=== PATIENT | female | born 2000 | race Caucasian/White ===

== ENCOUNTER → 2018-06-10 | Outpatient (CLI) | payer OTHER | END | disposition home or self-care (01) | LOC: LABWHC1 12:22 | PROVIDERS: ATTEND Obstetrics & Gynecology | DX: Z34.02 Encounter for supervision of normal first pregnancy, second trimester (principal); Z3A.00 Weeks of gestation of pregnancy not specified | CPT/HCPCS: 86850 ==

== ENCOUNTER 2018-10-12 17:07 | Outpatient (CLI) | payer OTHER ==
[2018-10-12] MEDS ORDERED: ONDANSETRON 4 MG/2 ML VIAL IVP STA (17:37)
[2018-10-12] MEDS: LACTATED RINGERS 1,000 ML IV SCH ×2 (17:40→18:08)
[2018-10-12 19:03] VITALS: BP 128/75; PULSE 107; RESP 18; TEMP 97.9
--- NOTE | 2018-11-05 11:49 | P.MSEPDOC ---
Presenting Problems - Arrival Data Date of Arrival on Unit: 10/12/18 Time of Arrival on Unit: 17:07 Mode of Transport: Ambulatory - Complaint OB-Reason for Admission/Chief Complaint: Possible Onset of Labor Comment: Pt states has had the back and vaginal pain since wednesday and got worse today. states she thinks she could be having contractions denies abdominal pain. Medical History - Information : 1 Para: 0 Term: 0 : 0 Abortions: Spontaneous or Elective: 0 Number of Living Children: 0 - Gestational Age Gestational Age by JENNIFER (wks/days): 38 Weeks and 2 Days Review of Systems - Review of Systems Constitutional: No problems Breast: No problems ENT: No problems Cardiovascular: No problems Respiratory: No problems Gastrointestinal: No problems Genitourinary: No problems Musculoskeletal: No problems Neurological: No problems Skin: No problems Comment: nausea/vomiting x2 days. Vital Signs - Temperature Temperature: 97.9 F Temperature Source: Temporal Artery Scan - Pulse Right Pulse Oximetery Pulse Rate: 107 Pulse Assessment Method: Pulse Oximetry - Respirations Respiratory Rate: 18 Oxygen Delivery Method: Room Air O2 Sat by Pulse Oximetry: 99 - Blood Pressure Right Arm Blood Pressure: 128/75 Blood Pressure Mean: 92 Blood Pressure Source: Automatic Cuff Medical Screen Scoring (Pre) - Cervical Exam Dilation: 1-3 cm = 1 Membranes: Intact - Uterine Contractions Frequency: > or = 36 weeks =2 Duration: > 40 seconds = 2 Intensity: N/A - Maternal Vital Signs Maternal Temperature: N/A Maternal Blood Pressure: N/A Signs of Preeclampsia: N/A Maternal Respirations: N/A - Pain Assessment Pain Location and Character: Perineal Pain Scale Used: Numeric (1 - 10) Pain Intensity: 7 Pain Management Goal: 2 Pain Description: *Acute, Pressure Pain Radiation Location: none Pain Frequency: Intermittent Pain Duration: 2 Pain Duration Units: Days Pain Behavior: Vocalization Effects of Pain: none Pain Aggravating Factors: Changing Position Pharmacological Interventions: PRN Medication Non-Pharmacological Interventions: Reduce Environmental Stimuli - Maternal Trauma Maternal Trauma: N/A - Assessment Baseline FHR: 125 Heart Rate - NICHD Category: Category I (Normal) = 0 NST: Reactive Position: N/A Station: N/A - Total Score Total Score (Pre): 5 - Level of Risk Level of Risk: Low (0-5) Physician Notification (Pre) - Physician Notified Physician Notified Date: 10/12/18 Physician Notified Time: 17:26 Physician/Practitioner Notifed:: Dr Collins Spoke With: Dr Collins New Order Received: Yes - Notification Comment Comment: pt here for rule out labor, also has been unable to keep fluids down x2 days. pt hydrated with IV fluids and given one dose of zofran, cervical exam no change after one hour. Disposition - Disposition OB Disposition: Discharge to home Discharge Date: 10/12/18 Discharge Time: 18:45 I agree with the RN Medical Screening Exam: Yes Risk & Benefit of care provided described in d/c instruction: Yes Diagnosis: FALSE LABOR AT OR AFTER 37 COMPLETED WEEKS OF GESTATION
== END 2018-10-12 18:40 | disposition home or self-care (01) ==
LOC: FBPOP 17:07
PROVIDERS: ATTEND Obstetrics & Gynecology
DX: O47.1 False labor at or after 37 completed weeks of gestation (principal); Z3A.38 38 weeks gestation of pregnancy
CPT/HCPCS: 59025; 99214; 96361; 96374; J2405

== ENCOUNTER 2018-10-22 19:10 | Outpatient (CLI) | payer OTHER ==
[2018-10-22 19:29] VITALS: BP 111/64; PULSE 87; RESP 16; TEMP 98.2
--- NOTE | 2018-10-22 21:01 | US ---
EXAMINATION TYPE: US OB >= 14 wk fetus DATE OF EXAM: 10/22/2018 COMPARISON: None CLINICAL HISTORY: decreased movement, known third trimester gestation. TECHNIQUE: Transabdominal GESTATIONAL AGE / DATING Physician Established: (39 weeks/5 days) EDC: 10/24/2018 Dates by LMP: (39 weeks/5 days) EDC: 10/24/2018 Dates by First Scan: No previous Dates by Current Scan: (38 weeks/1 days) EDC: 11/04/2018 SURVEY IUP: Single PLACENTA: Anterior PREVIA: No Previa NEGRO: 17.6 cm Normal CERVICAL LENGTH (transabdominal: norm > 3.0cm): 3.1 cm BIOMETRY PRESENTATION: Vertex LIE: Longitudinal BPD: 9.4 cm 38 weeks / 3 days HC: 33.8 cm 38 weeks / 5 days AC: 36.1 cm 40 weeks / 0 days FL: 7.3 cm 37 weeks / 4 days ESTIMATED WEIGHT IN GRAMS: 3695 grams ESTIMATED WEIGHT IN LBS/OZ: 8 lbs. 2 oz. WEIGHT PERCENTAGE BASED ON ESTABLISHED DATES: 61.1% HC/AC: 0.94 Normal FL/AC: 20.36 Normal HEART RATE: 130 bpm RHYTHM: Normal Viable IUP with an JENNIFER of 11/04/2018 by this exam. NEGRO is 17.6 cm. Probable placental lakes incidenta lly visualized, Single live intrauterine gestation is confirmed. Normal cephalad presentation to fetus is present. No ultrasound evidence for placenta previa. Amniotic fluid index is calculated upper limits of normal. biometry measurements are congruent and felt within normal limits as detailed above. IMPRESSION: No ultrasound evidence for significant complication.
--- NOTE | 2018-10-23 12:46 | P.MSEPDOC ---
Presenting Problems - Arrival Data Date of Arrival on Unit: 10/22/18 Time of Arrival on Unit: 19:10 Mode of Transport: Portable - Complaint OB-Reason for Admission/Chief Complaint: Decreased Movement Medical History - Information : 1 Para: 0 Term: 0 : 0 Abortions: Spontaneous or Elective: 0 Number of Living Children: 0 - Gestational Age Gestational Age by JENNIFER (wks/days): 39 Weeks and 5 Days - History Complications: Smoker Review of Systems - Review of Systems Constitutional: No problems Breast: No problems ENT: No problems Cardiovascular: No problems Respiratory: No problems Gastrointestinal: No problems Genitourinary: No problems Musculoskeletal: No problems Neurological: No problems Skin: No problems Vital Signs - Temperature Temperature: 98.2 F Temperature Source: Temporal Artery Scan - Pulse Right Brachial Pulse Rate: 87 Pulse Assessment Method: Automatic Cuff - Respirations Respiratory Rate: 16 Oxygen Delivery Method: Room Air O2 Sat by Pulse Oximetry: 98 - Blood Pressure Right Arm Blood Pressure: 111/64 Blood Pressure Mean: 79 Blood Pressure Source: Automatic Cuff Medical Screen Scoring (Pre) - Cervical Exam Dilation: Exam Deferred Effacement: Exam Deferred Membranes: Intact - Uterine Contractions Frequency: > 5 minutes apart = 1 Duration: > 40 seconds = 2 Intensity: N/A - Maternal Vital Signs Maternal Temperature: N/A Maternal Blood Pressure: N/A Signs of Preeclampsia: N/A Maternal Respirations: N/A - Maternal Trauma Maternal Trauma: N/A - Assessment Baseline FHR: 125 Heart Rate - NICHD Category: Category I (Normal) = 0 NST: Reactive Position: N/A Station: N/A - Total Score Total Score (Pre): 3 - Level of Risk Level of Risk: Low (0-5) Medical Screen Scoring (Post) - Cervical Exam Dilation: 1-3 cm = 1 Membranes: Intact - Uterine Contractions Frequency: > 5 minutes apart = 1 Duration: > 40 seconds = 2 - Assessment Heart Rate: 125 Heart Rate - NICHD Category: Category I (Normal) = 0 NST: Reactive Position: N/A - Total Score Total Score (Post): 4 Physician Notification (Post) - Physician Notified Physician Notified Date: 10/22/18 Physician Notified Time: 21:00 Spoke With: Hao New Order Received: Yes - Notification Comment Comment: jostin wnl, discharge with instruction to continue kick counts Disposition - Disposition OB Disposition: Discharge to home, Written follow up instructions reviewed Discharge Date: 10/22/18 Discharge Time: 21:05 I agree with the RN Medical Screening Exam: Yes Risk & Benefit of care provided described in d/c instruction: Yes Diagnosis: DECREASED MOVEMENTS, THIRD TRIMESTER, UNSP
== END 2018-10-22 21:05 | disposition home or self-care (01) ==
LOC: FBPOP 19:10
PROVIDERS: ATTEND Obstetrics & Gynecology
DX: O36.8130 Decreased fetal movements, third trimester, not applicable or unspecified (principal); Z3A.39 39 weeks gestation of pregnancy
CPT/HCPCS: 59025; 76805; 99213

== ENCOUNTER 2018-10-27 06:00 | Inpatient (IN) | payer OTHER ==
--- NOTE | 2018-10-26 20:30 | P.HPOB ---
History of Present Illness H&P Date: 10/26/18 Chief Complaint: Induction of labor, postdates This is a 18-year-old female 1 para 0 with an estimated date of confinement of 10/24/2018, estimated gestational age of 40-3/7 weeks, who presents to labor and delivery for induction of labor secondary to postdates. She admits to good movement currently. She did have an episode of decreased movement and amniotic fluid index was noted to be 18. Nonstress tests were reactive. She currently is feeling irregular contractions and pressure. She denies any rupture of membranes. course has been essentially uncomplicated up until this point. labs: GC/chlamydia-negative Hepatitis B surface antigen-negative RPR-nonreactive HIV-nonreactive Blood type-A- Antibody screen-negative Hemoglobin-12.7 Random glucose-89 One hour Glucola-105 Group B streptococcus-positive Obstetrical history: . Gynecologic history: No history of sexually transmitted diseases. Review of Systems Constitutional: Denies chills, Denies fever Eyes: denies blurred vision, denies pain Ears, nose, mouth and throat: Denies headache, Denies sore throat Cardiovascular: Denies chest pain, Denies shortness of breath Respiratory: Denies cough Gastrointestinal: Reports abdominal pain (Irregular contractions), Denies diarrhea, Denies nausea, Denies vomiting Genitourinary: Reports pelvic pain, Reports , Denies dysuria, Denies hematuria Musculoskeletal: Reports low back pain, Denies myalgias Integumentary: Denies pruritus, Denies rash Neurological: Denies numbness, Denies weakness Psychiatric: Denies anxiety, Denies depression Past Medical History Past Medical History: GERD/Reflux History of Any Multi-Drug Resistant Organisms: None Reported Past Surgical History: No Surgical Hx Reported Past Psychological History: No Psychological Hx Reported Smoking Status: Current every day smoker Past Alcohol Use History: None Reported Past Drug Use History: None Reported Medications and Allergies Home Medications Medication Instructions Recorded Confirmed Type No Known Home Medications 10/22/18 10/22/18 History Allergies Allergy/AdvReac Type Severity Reaction Status Date / Time aspartame Allergy Unknown Verified 10/22/18 19:20 bee venom protein (honey bee) Allergy Swelling Verified 10/22/18 19:20 Exam Osteopathic Statement: *. No significant issues noted on an osteopathic structural exam other than those noted in the History and Physical/Consult. HEENT: Within normal limits Heart: Regular rate and rhythm Lungs: Clear to auscultation bilaterally Abdomen: Cervix: 1 cm/60%/-1 station heart tones: 140s by Doppler Extremities: Negative Homans Assessment and Plan (1) 40 weeks gestation of Status: Acute Code(s): Z3A.40 - 40 WEEKS GESTATION OF SNOMED Code( s): 97629070 (2) Group B Streptococcus carrier, +RV culture, currently Status: Acute Code(s): O99.820 - STREPTOCOCCUS B CARRIER STATE COMPLICATING SNOMED Code(s): 3050200847320 Plan: Proceed with oxytocin induction of labor. Antibiotic prophylaxis for group B streptococcus. Expectant management.
[2018-10-27] MEDS ORDERED: OXYTOCIN 20 UNITS/1000 ML NS 1,000 ML IV SCH (06:24)
[2018-10-27] MEDS ORDERED: LIDOCAINE 1% INJ 10MG/ML (20 ML MDV) SQ PRN (06:24)
[2018-10-27] MEDS ORDERED: OXYTOCIN 10 UNIT/ML 1 ML VIAL IM PRN (06:24)
[2018-10-27] MEDS ORDERED: METHYLERGONOVINE 0.2 MG/ML 1 ML AMP IM PRN (06:24)
[2018-10-27] MEDS ORDERED: CARBOPROST TROMETHAMINE 250 MCG/ML 1 ML AMP IM PRN (06:24)
[2018-10-27] MEDS ORDERED: TERBUTALINE 1 MG/ML VIAL SQ PRN (06:24)
[2018-10-27] MEDS: LACTATED RINGERS 1,000 ML IV SCH ×2 (06:25→14:35)
[2018-10-27] MEDS: AMPICILLIN 1,000 MG in SODIUM CHLORIDE 0.9% 50 ML IVPB SCH ×4 (06:34→18:35)
[2018-10-27 06:48] LABS: Basophils % (A) 0 %; Eosinophils # (A) 0.1 k/uL (0-0.7); Eosinophils % (A) 0 %; HCT 34.4 % (34.0-46.0); HGB 11.4 gm/dL (11.4-16.0); Lymphocytes # (A) 2.2 k/uL (1.0-4.8); Lymphocytes % (A) 19 %; MCH 29.5 pg (25.0-35.0); MCV 89.2 fL (80.0-100.0); Mean Platelet Volume 7.3; Monocytes # (A) 0.5 k/uL (0-1.0); Monocytes % (A) 4 %; Neutrophils # (A) 8.5 k/uL (1.3-7.7); Neutrophils % (A) 74 %; Platelet Count 240 k/uL (150-450); RBC 3.86 m/uL (3.80-5.40); RDW 12.9 % (11.5-15.5); WBC 11.4 k/uL (4.0-11.0)
[2018-10-27 08:36] VITALS: BMI 25.7
[2018-10-27] MEDS: BUTORPHANOL 1 MG/ML 1 ML VIAL IV PRN ×3 (14:28→19:42)
[2018-10-27] MEDS ORDERED: CITRIC ACID-SODIUM CITRATE 15 ML CUP PO ONE (21:23)
[2018-10-27] MEDS ORDERED: LACTATED RINGERS 1,000 ML IV ONE (21:23)
[2018-10-27] MEDS ORDERED: ceFAZolin IN SWFI 2 GM/20 ML SYRINGE IVP ONE (21:23)
[2018-10-27] MEDS ORDERED: MORPHINE SULFATE (PF) 0.3 MG/0.3 ML SYR ONE (21:54)
[2018-10-27] MEDS ORDERED: NALBUPHINE 10 MG/ML VIAL (10ML MDV) ONE (21:54)
[2018-10-27] MEDS ORDERED: DEXAMETHASONE SOD PHOS (MDV) 100 MG/10 ML VIAL ONE (21:54)
[2018-10-27] MEDS ORDERED: ONDANSETRON 4 MG/2 ML VIAL ONE (21:54)
[2018-10-27] MEDS ORDERED: OXYTOCIN 10 UNIT/ML 1 ML VIAL ONE (21:54)
[2018-10-27] MEDS ORDERED: NALOXONE 0.4 MG/ML 1 ML VIAL IV PRN (22:17)
[2018-10-27] MEDS ORDERED: MORPHINE SULFATE 2 MG/ML SYRINGE IVP PRN (22:17)
[2018-10-27] MEDS ORDERED: ONDANSETRON 4 MG/2 ML VIAL IVP PRN (22:17)
[2018-10-27] MEDS ORDERED: diphenhydrAMINE 50 MG/ML 1 ML VIAL IVP PRN (22:17)
--- NOTE | 2018-10-27 22:42 | P.OP ---
Date of Procedure: 10/27/18 Preoperative Diagnosis: 1. Intrauterine at 40-3/7 weeks. 2. Failure to progress. Postoperative Diagnosis: Same Procedure(s) Performed: Primary low transverse section Anesthesia: spinal (Duramorph) Surgeon: Shagufta Bui Education Trainer #1: Micheal Cummins Estimated Blood Loss (ml): 300 Pathology: other (Placenta) Condition: stable Disposition: floor Indications for Procedure: This is a 18-year-old female 1 para 0 at 40-3/7 weeks who presented to labor and delivery for induction of labor. She underwent oxytocin induction of labor and artificial rupture membranes with clear fluid noted. She did receive several doses of Stadol while in labor. She reached a maximum dilation of 3 cm and did not make slubber frame changer at least 4 hours despite adequate contractions. At this point she was exhausted and requested section. I have discussed the risks, benefits, and alternative therapies for the above- mentioned procedure and for both sedation/anesthesia as well as necessary blood products administration, if indicated, as they pertain to this patient. The patient has indicated her understanding and acceptance of the risks and procedures discussed. Operative Findings: A viable female infant was noted in the vertex presentation with scores of 9 at 1 minute and 9 at 5 minutes and weight of 6 lbs. 9 oz. Nuchal cord 2 was noted and a small amount of caput was also noted. Normal uterus tubes and ovaries are noted. Description of Procedure: The patient is taken to the operating room where she is placed in the dorsal supine position with leftward tilt after spinal Duramorph anesthesia is given. She is prepped and draped in the normal sterile fashion. Skin was tested and found to be adequately anesthetized. A Pfannenstiel skin incision was made with a scalpel. A second knife was used to carry the incision down to the underlying layer of fascia. The fascia was nicked in the midline with a scalpel and then extended laterally bilaterally with Jackson scissors. The anterior lip of the fascia was grasped with 2 Alexa clamps and then dissected off the underlying rectus muscle in the midline with Jackson scissors. The inferior aspect of the fascial incision was grasped with 2 Alexa clamps and dissected off the underlying rectus muscle and the midline with Jackson scissors. Next the peritoneum layer was tented up with 2 hemostats and then entered sharply with the scalpel. The incision is extended superiorly and inferiorly with Metzenbaum scissors. Next a DeLee retractor is placed. The vesicouterine peritoneum is entered sharply with Metzenbaum scissors and extended laterally bilaterally with Metzenbaum scissors and then the bladder flap is pushed inferiorly. The lower uterine segment is incised in transverse fashion with the scalpel and then bluntly entered with a hemostat. Clear fluid is noted. The incision was then extended laterally bilaterally with 2 fingers. Next the infant's head is delivered through the incision. Nose and mouth are bulb suctioned. The remainder of the is easily delivered and placed on mother 's abdomen. Cord is clamped and cut. is taken to warmer by nursing staff. Uterine fundus is gently massaged and placenta is delivered manually. Uterus is exteriorized and cleared of all clots and debris. Uterine incision is closed with 0 Vicryl suture in a running locked fashion. A second layer of 0 Vicryl suture is used in a running fashion for hemostasis. Once adequate hemostasis as assured, the vesicouterine peritoneum is reapproximated with 2-0 Vicryl suture in a running fashion. Posterior cul-de-sac is suctioned of all clots and debris. Uterus is returned to the abdomen. Incision is noted to be hemostatic. Peritoneal layer is closed with 0 Vicryl suture in a running fashion. Muscle layer is reapproximated with 0 Vicryl suture in interrupted fashion. Fascia layer is then closed with 0 PDS suture with 2 sutures meeting in the midline and the knots buried in either side and in the midline. The subcutaneous tissue was then closed with 2-0 Vicryl suture. Skin layer was then closed with marci. All sponge and needle counts are correct. The patient is taken to recovery room in stable condition.
[2018-10-28] MEDS ORDERED: diphenhydrAMINE 50 MG CAP PO PRN (00:23)
[2018-10-28] MEDS ORDERED: HYDROCORTISONE 2.5% RECTAL CREAM 30 GM TUBE RECTAL PRN (00:23)
[2018-10-28] MEDS ORDERED: SIMETHICONE 80 MG CHEWABLE PO PRN (00:23)
[2018-10-28] MEDS ORDERED: METOCLOPRAMIDE 5 MG/ML 2 ML VIAL IVP PRN (00:23)
[2018-10-28] MEDS ORDERED: ZOLPIDEM 5 MG TAB PO PRN (00:23)
[2018-10-28] MEDS ORDERED: HYDROcodone/APAP 7.5-325MG 1 EACH TAB PO PRN (00:23)
[2018-10-28] MEDS ORDERED: IBUPROFEN 600 MG TAB PO PRN (00:23)
[2018-10-28] MEDS ORDERED: diphenhydrAMINE 50 MG/ML 1 ML VIAL IVP PRN ×2 (00:23)
[2018-10-28] MEDS ORDERED: HYDROcodone/APAP 5-325MG 1 EACH TAB PO PRN (00:23)
[2018-10-28] MEDS ORDERED: WITCH HAZEL 1 EACH MED..PAD TOPICAL PRN (00:23)
[2018-10-28] MEDS ORDERED: OXYTOCIN 20 UNITS/1000 ML NS 1,000 ML IV SCH (00:23)
[2018-10-28] MEDS ORDERED: LANOLIN CREAM 5 GM TUBE TOPICAL PRN (00:23)
[2018-10-28] MEDS ORDERED: ACETAMINOPHEN TAB 325 MG TAB PO PRN (00:23)
[2018-10-28] MEDS ORDERED: diphenhydrAMINE 25 MG CAP PO PRN (00:23)
[2018-10-28] MEDS: SENNOSIDES-DOCUSATE SODIUM 1 EACH TAB PO SCH ×2 (03:49→21:10)
--- NOTE | 2018-10-28 06:39 | P.PN ---
Progress Note - Text Progress Note Date: 10/28/18 Status post . Post-op day #1. Patient received intrathecal Duramorph. Patient was seen today, sitting up in bed no complaints, pain VAS score 0/10, no headache, no itching, no nausea and vomiting. Assessment and plan: Doing well in general no complications from anesthesia.
[2018-10-28 07:43] LABS: Basophils % (A) 0 %; Eosinophils % (A) 0 %; HCT 29.8 % (34.0-46.0); Lymphocytes # (A) 1.1 k/uL (1.0-4.8); Lymphocytes % (A) 5 %; MCHC 33.2 g/dL (31.0-37.0); MCV 90.3 fL (80.0-100.0); Mean Platelet Volume 7.5; Monocytes # (A) 0.6 k/uL (0-1.0); Monocytes % (A) 3 %; Neutrophils # (A) 18.4 k/uL (1.3-7.7); Neutrophils % (A) 91 %; Platelet Count 223 k/uL (150-450); RDW 12.9 % (11.5-15.5); WBC 20.1 k/uL (4.0-11.0)
[2018-10-28 07:49] LABS: HGB 9.9 gm/dL (11.4-16.0)
[2018-10-28] MEDS: KETOROLAC 30 MG/ML 1 ML VIAL IVP PRN ×2 (08:04→16:15)
--- NOTE | 2018-10-28 08:29 | P.PNOBGPC ---
Subjective - Subjective Principal diagnosis: Status post primary section postoperative day #1 Interval history: Patient is doing well. She is ambulating. She has not passed flatus or bowel movement yet. She has not urinated yet but her catheter was just removed. Patient reports: Reports appetite normal, Reports pain well controlled, Reports ambulating normally [place]: doing well, nursing well Objective - Vital Signs Latest vital signs: Vital Signs Temp Pulse Resp BP Pulse Ox 10/28/18 05:00 16 98 10/28/18 04:00 98.0 F 83 18 114/60 98 10/28/18 03:17 99 10/28/18 03:00 16 99 10/28/18 01:17 16 98 10/28/18 00:38 97.8 F 89 16 112/63 98 10/28/18 00:08 84 16 136/63 98 10/27/18 23:38 83 16 120/66 98 10/27/18 23:23 98 16 132/75 98 10/27/18 23:17 83 16 120/66 98 10/27/18 23:08 89 16 112/60 98 10/27/18 22:53 82 16 122/62 98 10/27/18 22:38 97.0 F L 62 16 127/73 98 10/27/18 22:17 18 98 Intake and Output 10/27/18 10/28/18 10/28/18 22:59 06:59 14:59 Intake Total 47.9 Output Total 600 Balance 47.9 -600 Intake: Intake, IV Titration 47.9 Amount Oxytocin 20 Units/1000 ml 47.9 Ns 1,000 ml @ 1 MILLIUNIT/MIN 3 mls/hr IV .Q24H [facility] Rx#:[id number] Output: Urine 600 Uretheral (Johnson) 250 - Exam Extremities: Present: normal. Absent: tenderness Abdomen: Present: normal appearance, soft (Positive bowel sounds 4). Absent: distention, tenderness Incision: Present: normal, dry, intact. Absent: erythematous Uterus: Present: normal, firm. Absent: tenderness - Labs Labs: Abnormal Lab Results - Last 24 Hours (Table) 10/28/18 Range/Units 06:39 WBC 20.1 H (4.0-11.0) k/uL RBC 3.30 L (3.80-5.40) m/uL Hgb 9.9 L D (11.4-16.0) gm/dL Hct 29.8 L (34.0-46.0) % Neutrophils # 18.4 H (1.3-7.7) k/uL Assessment and Plan Assessment: Status post primary section postoperative day #1 (1) 40 weeks gestation of Current Visit: No Status: Acute Code(s): Z3A.40 - 40 WEEKS GESTATION OF SNOMED Code(s): 00017257 (2) Group B Streptococcus carrier, +RV culture, currently Current Visit: No Status: Acute Code(s): O99.820 - STREPTOCOCCUS B CARRIER STATE COMPLICATING SNOMED Code(s): 1383712654789 Plan: Continue with postoperative care. Will advance diet as tolerated after flatus. Encouraged ambulation.
[2018-10-28] MEDS: LACTATED RINGERS 1,000 ML IV SCH ×3 (11:33→21:11)
[2018-10-28] MEDS ORDERED: Rhogam IMMUNE GLOBULIN 1,500 UNIT/1 ML IM ONE (15:13)
[2018-10-28] MEDS: ACETAMINOPHEN TAB 325 MG TAB PO PRN (20:28)
[2018-10-29] MEDS: KETOROLAC 30 MG/ML 1 ML VIAL IVP PRN (04:02)
[2018-10-29] MEDS: SENNOSIDES-DOCUSATE SODIUM 1 EACH TAB PO SCH ×2 (08:50→15:10)
--- NOTE | 2018-10-29 10:38 | P.PNOBGPC ---
Subjective - Subjective Principal diagnosis: S/P 1*LTCS POD #2 Interval history: Patient seen and examined. Denies nausea, vomiting, chest pain, shortness of breath or calf pain. Her pain is well-controlled. She is ambulating voiding without difficulty. Patient reports: Reports appetite normal, Reports voiding normally, Reports pain well controlled, Reports ambulating normally : doing well Objective - Vital Signs Latest vital signs: Vital Signs Temp Pulse Resp BP Pulse Ox 10/29/18 08:46 98.1 F 89 16 123/82 99 10/29/18 06:00 16 10/29/18 00:00 98.7 F 87 16 120/67 10/28/18 21:00 16 10/28/18 20:00 98.0 F 94 16 118/69 10/28/18 19:00 142/84 99 10/28/18 16:22 18 10/28/18 16:00 98.0 F 75 17 128/75 10/28/18 15:00 16 99 10/28/18 13:00 16 10/28/18 12:46 98.6 F 89 17 118/57 98 10/28/18 11:00 16 98 Intake and Output 10/28/18 10/29/18 10/29/18 22:59 06:59 14:59 Output Total 300 Balance -300 Output: Urine 300 Other: # Voids 350 - Exam Lungs: bilateral: normal Chest: Normal S1, Normal S2 Extremities: Present: normal Abdomen: Present: normal appearance, soft. Absent: distention, tenderness Incision: Present: normal, dry, intact Uterus: Present: normal, firm Assessment and Plan (1) Status post primary low transverse section Current Visit: Yes Status: Acute Code(s): Z98.891 - HISTORY OF UTERINE SCAR FROM PREVIOUS SURGERY SNOMED Code(s): 437088774 Plan: 1. increase ambulation 2. reg diet
[2018-10-29] MEDS: IBUPROFEN 600 MG TAB PO PRN ×2 (12:25→21:37)
[2018-10-29] MEDS: ACETAMINOPHEN TAB 325 MG TAB PO PRN (15:09)
[2018-10-29] MEDS: AMPICILLIN 1,000 MG in SODIUM CHLORIDE 0.9% 50 ML IVPB SCH (20:32)
[2018-10-29 23:47] VITALS: PULSE 77
[2018-10-30] MEDS: ACETAMINOPHEN TAB 325 MG TAB PO PRN (02:41)
[2018-10-30] MEDS: IBUPROFEN 600 MG TAB PO PRN (04:55)
[2018-10-30] MEDS: SENNOSIDES-DOCUSATE SODIUM 1 EACH TAB PO SCH (08:03)
[2018-10-30 08:09] VITALS: BP 124/57; RESP 18; TEMP 98.9
--- NOTE | 2018-10-30 09:23 | P.DS ---
Providers Date of admission: 10/27/18 06:14 Expected date of discharge: 10/30/18 Attending physician: Shagufta Bui Primary care physician: Stated None - Discharge Diagnosis(es) (1) Status post primary low transverse section Current Visit: Yes Status: Acute Hospital Course: Pt she had an uncomplicated postoperative course. Her pain is well- controlled with Lehr and Motrin. She'll be discharged home postoperative day # 3 in stable condition to follow-up with Dr. Bui in one week. Plan - Discharge Summary New Discharge Prescriptions: New HYDROcodone/APAP 7.5-325MG [Lehr 7.5-325] 1 each PO Q6H PRN #18 tab PRN Reason: Severe Pain Ibuprofen [Motrin] 600 mg PO Q6HR PRN #30 tab PRN Reason: Mild Pain Or Fever >= 100.5 No Action Pnv No.95/Ferrous Fum/Folic AC [ Multivitamin Tablet] 1 tab PO ONCE Discharge Medication List Pnv No.95/Ferrous Fum/Folic AC [ Multivitamin Tablet] 1 tab PO ONCE [History] HYDROcodone/APAP 7.5-325MG [Lehr 7.5-325] 1 each PO Q6H PRN #18 tab 10/30/18 [ Rx] Ibuprofen [Motrin] 600 mg PO Q6HR PRN #30 tab 10/30/18 [Rx] Follow up Appointment(s)/Referral(s): Agatha Lerma DO [Doctor of Osteopathic Medicine] - 1 Week Discharge Disposition: HOME SELF-CARE
== END 2018-10-30 11:20 | disposition home or self-care (01) | DRG 788 ==
LOC: 4FBP 06:14
PROVIDERS: ADMIT Obstetrics & Gynecology; ATTEND Obstetrics & Gynecology
PROC: 10907ZC Drainage of Amniotic Fluid, Therapeutic from Products of Conception, Via Natural or Artificial Opening (ICD-10-PCS; 2018-10-27)
PROC: 3E033VJ Introduction of Other Hormone into Peripheral Vein, Percutaneous Approach (ICD-10-PCS; 2018-10-27)
PROC: 10D00Z1 Extraction of Products of Conception, Low, Open Approach (ICD-10-PCS; principal; 2018-10-27 22:07)
DX: O48.0 Post-term pregnancy (principal); O69.81X0 Labor and delivery complicated by cord around neck, without compression, not applicable or unspecified; O99.334 Smoking (tobacco) complicating childbirth; O99.62 Diseases of the digestive system complicating childbirth; K21.9 Gastro-esophageal reflux disease without esophagitis; F17.210 Nicotine dependence, cigarettes, uncomplicated; O99.824 Streptococcus B carrier state complicating childbirth; O62.2 Other uterine inertia; Z37.0 Single live birth; Z3A.40 40 weeks gestation of pregnancy; Z91.030 Bee allergy status; Z91.018 Allergy to other foods
CPT/HCPCS: 85025; 85461; 86850; 86870; 86880; 86900; 86901; 88307

== ENCOUNTER 2022-03-20 23:56 | Outpatient (CLI) | payer OTHER ==
[2022-03-21] MEDS ORDERED: ACETAMINOPHEN TAB 325 MG TAB PO STA (00:40)
--- NOTE | 2022-03-21 01:22 | US ---
EXAMINATION TYPE: US OB limited DATE OF EXAM: 03/21/2022 COMPARISON: NONE CLINICAL HISTORY: 35 week fall. Fell in shower. EXAM PERFORMED: Transabdominal (TA) GESTATIONAL AGE / DATING Physician Established: (35 weeks/1 days) EDC: 04/24/2022 No growth performed on today?s study per ordering physician SURVEY PLACENTA: Fundal PREVIA: No Previa Ultrasound evidence of abruption? No NEGRO: 10.5 cm wnl Ultrasound evidence of premature rupture of membranes? No Ultrasound evidence of cervical incompetence? HEART RATE: 149 bpm RHYTHM: wnl IMPRESSION: The heart rate is 149. Amniotic fluid is adequate.
[2022-03-21 03:39] VITALS: BP 122/63; PULSE 104; RESP 16; TEMP 97.4
--- NOTE | 2022-03-21 13:59 | P.MSEPDOC ---
Presenting Problems - Arrival Data Date of Arrival on Unit: 03/21/22 Time of Arrival on Unit: 23:56 Mode of Transport: Wheelchair - Complaint OB-Reason for Admission/Chief Complaint: Pain Comment: Patient arrives to triage with complaints of pain on her left rib cage from. fall in shower around 22:45. Patient said she slipped. Patient also states she is havingpain in her vagina that comes and goes. Patient denies bleeding or leaking of fluids. Medical History - Information : 2 Para: 1 Term: 1 : 0 Abortions: Spontaneous or Elective: 0 Number of Living Children: 1 - Gestational Age Gestational Age by JENNIFER (wks/days): 35 Weeks and 1 Days Review of Systems - Review of Systems Constitutional: No problems Breast: No problems ENT: No problems Cardiovascular: No problems Respiratory: No problems Gastrointestinal: No problems Genitourinary: No problems Musculoskeletal: No problems Neurological: No problems Skin: No problems Vital Signs - Temperature Temperature: 97.4 F Temperature Source: Temporal Artery Scan - Pulse Right Brachial Pulse Rate: 104 Pulse Assessment Method: Automatic Cuff - Respirations Respiratory Rate: 16 Oxygen Delivery Method: Room Air O2 Sat by Pulse Oximetry: 99 - Blood Pressure Right Arm Blood Pressure: 122/63 Blood Pressure Mean: 82 Blood Pressure Source: Automatic Cuff Medical Screen Scoring - Cervical Exam Dilation (cm): 0 Effacement (%): 0 Membranes: Intact - Assessment - Baby A Baseline FHR: 120 Heart Rate - NICHD Category: Category I (Normal) NST: Reactive Physician Notification - Physician Notified Physician Notified Date: 03/21/22 Physician Notified Time: 03:14 Physician: Shagufta Bui New Order Received: Yes - Notification Comment Comment: Dr. Bui states patient may continue to take tylenol and to return if any symptoms worsen, red vaginal bleeding, hardened uterus. Patient verbalizes understanding. Maternal Triage Index - Maternal Triage Index Presenting for scheduled procedure w/no complaint: No - Stat/Priority 1 Stat Priority 1: No - Urgent/Priority 2 Urgent Priority 2: Yes Provider Notified: Shagufta Bui Provider Notified Time: 00:25 Criteria Met for Priority 2: Severe pain unrelated to contractions 06/07 from fall in shower Disposition - Disposition OB Disposition: Discharge to home Discharge Date: 04/23/22 Discharge Time: 03:30 I agree with the RN Medical Screening Exam: Yes Case reviewed; plan agreed upon as documented in EMR&OBIX.: Yes Diagnosis: FALL IN (INTO) SHOWER OR EMPTY BATHTUB, INITIAL ENCOUNTER
== END 2022-03-21 03:30 | disposition home or self-care (01) ==
LOC: FBPOP 23:56
PROVIDERS: ATTEND Obstetrics & Gynecology
DX: O26.893 Other specified pregnancy related conditions, third trimester (principal); R07.81 Pleurodynia; R10.2 Pelvic and perineal pain; O99.333 Smoking (tobacco) complicating pregnancy, third trimester; F17.210 Nicotine dependence, cigarettes, uncomplicated; Z3A.35 35 weeks gestation of pregnancy; W18.2XXA Fall in (into) shower or empty bathtub, initial encounter; Z91.02 Food additives allergy status
CPT/HCPCS: 36415; 59025; 76815; 99213

== ENCOUNTER 2022-04-22 06:27 | Inpatient (IN) | payer OTHER ==
--- NOTE | 2022-04-21 21:55 | P.HPOB ---
History of Present Illness H&P Date: 04/21/22 Chief Complaint: Repeat section This is a 21 y.o. female, 2, para 1, with an estimated date of confinement of 04/24/2022, estimated gestational age of 39-5/7 weeks, who presents for scheduled repeat section. She has been feeling irregular contractions and pressure. She did see [facility] for ultrasounds due to possible enlarged thyroid, but they did not find this to be the case. Incidental arrhythmia, likely PACs, was noted on scan. She has done regular surveillance. labs: GC/Chlamydia/Trich-neg Hepatitis B surface antigen-neg RPR-NR Rubella-immune Blood type-A neg Antibody screen-neg HIV-NR Hemoglobin-10.5 1 hr. GTT-84 Rhogam given 29 weeks GBS-positive OB Hx: . 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 Unemployed. Review of Systems Constitutional: Denies chills, Denies fever Eyes: denies blurred vision, denies pain Ears, nose, mouth and throat: Denies headache, Denies sore throat Cardiovascular: Denies chest pain, Denies shortness of breath Respiratory: Denies cough Gastrointestinal: Reports abdominal pain (irregular contractions), Reports heartburn Genitourinary: Reports pelvic pain, Reports Musculoskeletal: Reports low back pain Integumentary: Denies pruritus, Denies rash Neurological: Denies numbness, Denies weakness Psychiatric: Reports anxiety, Reports depression Past Medical History Past Medical History: GERD/Reflux History of Any Multi-Drug Resistant Organisms: None Reported Past Surgical History: Section Past Anesthesia/Blood Transfusion Reactions: No Reported Reaction Past Psychological History: No Psychological Hx Reported Smoking Status: Current every day smoker Past Alcohol Use History: None Reported Past Drug Use History: None Reported - Past Family History Mother Family Medical History: No Reported History, Hypertension Medications and Allergies Home Medications Medication Instructions Recorded Confirmed Type Pnv No.95/Ferrous Fum/Folic AC 1 tab PO ONCE 10/27/18 04/15/22 History [ Multivitamin Tablet] Allergies Allergy/AdvReac Type Severity Reaction Status Date / Time aspartame Allergy Swelling Verified 04/22/22 06:40 Exam Osteopathic Statement: *. No significant issues noted on an osteopathic structural exam other than those noted in the History and Physical/Consult. HEENT: within normal limits Heart: regular rate and rhythm Lungs: clear to auscultation bilaterally Abdomen: , non-tender Cervix: closed/60%/0 heart tones: 140's by doppler Extremities: neg. William's Results Result Diagrams: 04/22/22 06:40 Assessment and Plan (1) 39 weeks gestation of Current Visit: No Status: Acute Code(s): Z3A.39 - 39 WEEKS GESTATION OF SNOMED Code(s): 68973785 (2) Previous delivery affecting Current Visit: No Status: Acute Code(s): O34.219 - MATERNAL CARE FOR UNSP TYPE SCAR FROM PREVIOUS DEL SNOMED Code(s): 962788665 (3) Group B Streptococcus carrier, +RV culture, currently Current Visit: No Status: Acute Code(s): O99.820 - STREPTOCOCCUS B CARRIER STATE COMPLICATING SNOMED Code(s): 6295964734526 Plan: Proceed with repeat low transverse section. I have discussed the risks, benefits, and alternative therapies for the above- mentioned procedure and for both sedation/anesthesia as well as necessary blood products administration, if indicated, as they pertain to this patient. The patient has indicated her understanding and acceptance of the risks and procedures discussed.
[2022-04-22] MEDS ORDERED: CITRIC ACID-SODIUM CITRATE 15 ML CUP PO ONE (06:40)
[2022-04-22] MEDS ORDERED: LACTATED RINGERS 1,000 ML IV ONE (06:40)
[2022-04-22] MEDS ORDERED: LIDOCAINE 1% (10MG/ML) FOR IV START INTRADERMA PRN (06:40)
[2022-04-22 06:52] LABS: Basophils # (A) 0.1 k/uL (0-0.2); Basophils % (A) 1 %; Eosinophils # (A) 0.1 k/uL (0-0.7); Eosinophils % (A) 1 %; HCT 34.5 % (34.0-46.0); HGB 11.3 gm/dL (11.4-16.0); Lymphocytes # (A) 2.8 k/uL (1.0-4.8); Lymphocytes % (A) 21 %; MCH 30.5 pg (25.0-35.0); MCHC 32.7 g/dL (31.0-37.0); MCV 93.2 fL (80.0-100.0); Mean Platelet Volume 8.1; Monocytes # (A) 0.5 k/uL (0-1.0); Monocytes % (A) 4 %; Neutrophils # (A) 9.6 k/uL (1.3-7.7); Neutrophils % (A) 73 %; Platelet Count 227 k/uL (150-450); RDW 12.9 % (11.5-15.5); WBC 13.2 k/uL (3.8-10.6)
--- NOTE | 2022-04-22 08:40 | P.OP ---
Date of Procedure: 04/22/22 Preoperative Diagnosis: 1. Intrauterine at 39-5/7 weeks. 2. Previous section. 3. Rh-. 4. Positive group B streptococcus carrier. Postoperative Diagnosis: Same Procedure(s) Performed: Repeat low transverse section Anesthesia: spinal (Duramorph) Surgeon: Shagufta Bui Roustabout Pusher #1: Agatha Lerma Estimated Blood Loss (ml): 400 Pathology: none sent Condition: stable Disposition: floor Indications for Procedure: This is a 21-year-old female 2 para 1 at 39-5/7 weeks who presents for scheduled repeat section. I have discussed the risks, benefits, and alternative therapies for the above- mentioned procedure and for both sedation/anesthesia as well as necessary blood products administration, if indicated, as they pertain to this patient. The patient has indicated her understanding and acceptance of the risks and procedures discussed. Operative Findings: A viable female is noted in the vertex presentation with scores of 9 at 1 minute and 9 at 5 minutes and infant weight of 6 lbs. 12 oz. Normal uterus tubes and ovaries are noted. Description of Procedure: The patient is taken to the operating room where she is placed in the dorsal supine position with leftward tilt after spinal Duramorph anesthesia is given. She is prepped and draped in the normal sterile fashion. Skin was tested and found to be adequately anesthetized. A Pfannenstiel skin incision was made with a scalpel removing the previous laparotomy scar. A second knife was used to carry the incision down to the underlying layer of fascia. The fascia was nicked in the midline with a scalpel and then extended laterally bilaterally with Jackson scissors. The anterior lip of the fascia was grasped with 2 Alexa clamps and then dissected off the underlying rectus muscle in the midline with Jackson scissors. The inferior aspect of the fascial incision was grasped with 2 Alexa clamps and dissected off the underlying rectus muscle and the midline with Jackson scissors. Next the peritoneum layer was tented up with 2 hemostats and then entered sharply with the scalpel. The incision is extended superiorly and inferiorly with Metzenbaum scissors. Next a DeLee retractor is placed. The vesicouterine peritoneum is entered sharply with Metzenbaum scissors and extended laterally bilaterally with Metzenbaum scissors and then the bladder flap is pushed inferiorly. The lower uterine segment is incised in transverse fashion with the scalpel and then bluntly entered with a hemostat. Clear fluid is noted. The incision was then extended laterally bilaterally with 2 fingers. Next the infant's head is delivered through the incision. Nose and mouth are bulb suctioned. The remainder of the is easily delivered and placed on mother's abdomen. Cord is clamped and cut. is taken to warmer by nursing staff. Uterine fundus is gently massaged and placenta is delivered manually. Uterus is exteriorized and cleared of all clots and debris. Uterine incision is closed with 0 Vicryl suture in a running locked fashion. A second layer of 0 Vicryl suture is used in a running fashion for hemostasis. Adequate hemostasis was noted using a couple interrupted stitches on the left side of the incision. Posterior cul-de-sac is suctioned of all clots and debris. Uterus is returned to the abdomen. Incision is noted to be hemostatic. Peritoneal layer is closed with 0 Vicryl suture in a running fashion. Muscle layer is reapproximated with 0 Vicryl suture in interrupted fashion. Fascia layer is then closed with 0 PDS suture with 2 sutures meeting in the midline and the knots buried in either side and in the midline. The subcutaneous tissue was then closed with 2-0 Vicryl suture. Skin layer was then closed with marci. All sponge and needle counts are correct. The patient is taken to recovery room in stable condition.
[2022-04-22] MEDS ORDERED: ZOLPIDEM 5 MG TAB PO PRN (09:00)
[2022-04-22] MEDS ORDERED: ONDANSETRON 4 MG/2 ML VIAL IVP PRN (09:00)
[2022-04-22] MEDS ORDERED: METOCLOPRAMIDE 5 MG/ML 2 ML VIAL IVP PRN (09:00)
[2022-04-22] MEDS ORDERED: NALOXONE 0.4 MG/ML 1 ML VIAL IV PRN (09:00)
[2022-04-22] MEDS ORDERED: diphenhydrAMINE 50 MG/ML 1 ML VIAL IVP PRN ×2 (09:00)
[2022-04-22] MEDS ORDERED: diphenhydrAMINE 50 MG CAP PO PRN (09:00)
[2022-04-22] MEDS ORDERED: OXYTOCIN 30 UNITS/500 ML NS 30 UNIT in SALINE 1 500ML.BAG IV SCH ×2 (09:00→09:15)
[2022-04-22] MEDS ORDERED: diphenhydrAMINE 25 MG CAP PO PRN (09:00)
[2022-04-22] MEDS ORDERED: HYDROmorphone 1 MG/ML 1 ML SYRINGE IVP PRN (09:00)
[2022-04-22] MEDS ORDERED: LANOLIN CREAM 5 GM TUBE TOPICAL PRN (09:00)
[2022-04-22] MEDS ORDERED: HYDROmorphone 0.5 MG/0.5 ML SYRINGE IVP PRN (09:00)
[2022-04-22] MEDS: LACTATED RINGERS 1,000 ML IV SCH ×2 (09:01→15:22)
[2022-04-22] MEDS: SENNOSIDES-DOCUSATE SODIUM 1 EACH TAB PO SCH (10:21)
[2022-04-22] MEDS ORDERED: Rhogam IMMUNE GLOBULIN 1,500 UNIT/1 ML IM ONE (10:34)
[2022-04-22] MEDS ORDERED: MAG HYDROX/AL HYDROX/SIMETH 30 ML CUP PO PRN (11:02)
[2022-04-22] MEDS: ACETAMINOPHEN TAB 500 MG TAB PO SCH ×2 (11:22→18:51)
[2022-04-22] MEDS: IBUPROFEN 600 MG TAB PO SCH ×2 (18:51→20:44)
[2022-04-23] MEDS: ACETAMINOPHEN TAB 500 MG TAB PO SCH ×4 (02:37→18:40)
[2022-04-23] MEDS: SENNOSIDES-DOCUSATE SODIUM 1 EACH TAB PO SCH ×3 (04:56→19:38)
[2022-04-23 07:51] LABS: Basophils % (A) 0 %; Eosinophils # (A) 0.1 k/uL (0-0.7); Eosinophils % (A) 0 %; HCT 27.2 % (34.0-46.0); Lymphocytes % (A) 17 %; MCH 30.6 pg (25.0-35.0); MCHC 32.9 g/dL (31.0-37.0); MCV 92.8 fL (80.0-100.0); Mean Platelet Volume 8.6; Monocytes # (A) 0.5 k/uL (0-1.0); Monocytes % (A) 4 %; Neutrophils # (A) 9.3 k/uL (1.3-7.7); Neutrophils % (A) 77 %; Platelet Count 180 k/uL (150-450); RBC 2.94 m/uL (3.80-5.40); RDW 13.2 % (11.5-15.5)
--- NOTE | 2022-04-23 08:08 | P.PNOBGPC ---
Subjective - Subjective Principal diagnosis: Status post repeat section postoperative day #1 Interval history: Patient is doing well. She is passing flatus but no bowel movement yet. She is tolerating regular diet. Lochia has been minimal. She is working on breast- feeding. Her pain is fairly well controlled at this time. Patient reports: Reports appetite normal, Reports voiding normally, Reports pain well controlled, Reports ambulating normally Velarde: doing well, nursing well Objective - Vital Signs Latest vital signs: Vital Signs Temp Pulse Resp BP Pulse Ox 04/23/22 04:00 98.2 F 74 16 98/64 98 04/22/22 20:00 98.2 F 80 16 100/72 99 04/22/22 16:00 98.4 F 85 18 107/52 96 04/22/22 11:31 98.0 F 70 18 104/50 04/22/22 10:41 97.3 F L 77 18 115/66 100 04/22/22 10:11 87 18 115/57 04/22/22 09:41 97.1 F L 71 18 105/60 04/22/22 09:26 60 18 97/59 04/22/22 09:11 67 18 102/55 99 04/22/22 08:56 78 18 103/61 04/22/22 08:41 96.9 F L 82 18 100/59 99 Intake and Output 04/22/22 04/23/22 04/23/22 22:59 06:59 14:59 Output Total 200 300 Balance -200 -300 Output: Urine 200 300 - Exam Extremities: Present: normal. Absent: tenderness, edema Abdomen: Present: normal appearance, soft (Positive bowel sounds 4). Absent: distention, tenderness Incision: Present: normal, dry, intact. Absent: erythematous Uterus: Present: normal, firm. Absent: tenderness - Labs Labs: Abnormal Lab Results - Last 24 Hours (Table) 04/23/22 Range/Units 07:29 WBC 12.0 H (3.8-10.6) k/uL RBC 2.94 L (3.80-5.40) m/uL Hgb 9.0 L D (11.4-16.0) gm/dL Hct 27.2 L (34.0-46.0) % Neutrophils # 9.3 H (1.3-7.7) k/uL Assessment and Plan Assessment: Status post repeat section postoperative day #1 (1) 39 weeks gestation of Current Visit: No Status: Acute Code(s): Z3A.39 - 39 WEEKS GESTATION OF SNOMED Code(s): 35681407 (2) Previous delivery affecting Current Visit: No Status: Acute Code(s): O34.219 - MATERNAL CARE FOR UNSP TYPE SCAR FROM PREVIOUS DEL SNOMED Code(s): 143340848 (3) Group B Streptococcus carrier, +RV culture, currently Current Visit: No Status: Acute Code(s): O99.820 - STREPTOCOCCUS B CARRIER STATE COMPLICATING SNOMED Code(s): 2564530729855 Plan: Continue with postoperative and care today. Anticipate discharge home tomorrow.
[2022-04-23] MEDS: LACTATED RINGERS 1,000 ML IV SCH ×2 (08:10→08:11)
[2022-04-23] MEDS: IBUPROFEN 600 MG TAB PO SCH ×4 (08:12→20:40)
--- NOTE | 2022-04-23 14:43 | P.PN ---
Progress Note - Text Progress Note Date: 04/23/22 (6021) Anesthesia Postop day 1 Subjective: Status Post section with Duramorph. Patient seen and examined. Doing well without complaint. VAS 0. No nausea vomiting or pruritus. . Gross lower extremity strength intact. . Without apparent anesthetic complications. Objective: Vital signs reviewed Heart: Regular Rate Lungs: Good chest excursion Abdomen: Appears nondistended Assessment: Status post with Duramorph postop day 1 Plan: Continue current care with your medical management. Anticipated and the Duramorph around noon today, you may see increased pain needs around this time.
[2022-04-24] MEDS: ACETAMINOPHEN TAB 500 MG TAB PO SCH (00:21)
[2022-04-24 00:53] VITALS: RESP 16
[2022-04-24] MEDS: IBUPROFEN 600 MG TAB PO SCH ×2 (06:55→12:33)
--- NOTE | 2022-04-24 08:34 | P.DS ---
Providers Date of admission: 04/22/22 06:27 Expected date of discharge: 04/24/22 Attending physician: Shagufta Bui Primary care physician: Stated None - Discharge Diagnosis(es) (1) 39 weeks gestation of Current Visit: No Status: Acute (2) Previous delivery affecting Current Visit: No Status: Acute (3) Group B Streptococcus carrier, +RV culture, currently Current Visit: No Status: Acute Hospital Course: This is a 21-year-old female 2 para 1 at 39-5/7 weeks who presented for scheduled repeat section she underwent a repeat low transverse section under spinal Duramorph anesthesia on 04/22/2022 and delivered a viable female with scores of 9 at 1 minute and 9 at 5 minutes and infant weight of 6 lbs. 12 oz. Her and postoperative course has been uncomplicated. She is passing flatus but no bowel movement yet. Her pain is well-controlled. She is breast-feeding. Lochia is minimal. No signs are stable. Abdomen is soft with positive bowel sounds 4. Incision is clean dry and intact with marci in place. Extremities show negative Homans. Impression is status post repeat low transverse section postoperative day #2. Plan is to discharge home today. Routine postoperative and instructions are given. She will be given a prescription for ibuprofen and she already has a breast pump. Marci will be removed and Steri-Strips placed prior to discharge. She is advised follow-up in the office in approximately 2 weeks for a postoperative check and in 6 weeks for a check. He is advised to call the office if she has any further questions or concerns prior to her appointment time. Procedures: Repeat low transverse section on 04/22/2022 Patient Condition at Discharge: Stable Plan - Discharge Summary New Discharge Prescriptions: New Ibuprofen [Motrin] 600 mg PO Q6H #60 tab Continue Pnv No.95/Ferrous Fum/Folic AC [ Multivitamin Tablet] 1 tab PO ONCE Discharge Medication List Pnv No.95/Ferrous Fum/Folic AC [ Multivitamin Tablet] 1 tab PO ONCE 10/27/18 [History] Ibuprofen [Motrin] 600 mg PO Q6H #60 tab 04/24/22 [Rx] Follow up Appointment(s)/Referral(s): Shagufta Bui DO [Doctor of Osteopathic Medicine] - 06/04/22 3:30 pm (Post Op 05-07-2022 at 02:15) Activity/Diet/Wound Care/Special Instructions: Instructions 1. Do not begin any exercise program for 3 weeks. 2. Do not resume sexual relations for 3 weeks or longer if uncomfortable. 3. You may take tub baths or showers at any time. 4. You may use tampons if desired after 3 weeks. 5. Keep the area of episiotomy (stitches) clean and dry. 6. If you are not nursing, wear a good fitting, supportive bra during the day and limit fluid intake for at least 1 week to prevent breast engorgement. 7. Call the office, [phone], within the next week to make appointment for your 6 week checkup if it has not already been made. 8. Report any of the following occurrences to the doctor promptly: a. Heavy, excessive bleeding b. Chills, fever c. Burning or frequency of urination d. Pain or redness and breasts if nursing e. Increasing pain or swelling in episiotomy (stitches). In addition to the above instructions, the following additional should be followed: 1. No heavy lifting or straining (exercising) until after 6 week checkup. 2. Keep abdominal incision clean and dry: You may wear a dressing if more comfortable. 3. Make office appointment for 10 days after going home or as instructed by her doctor. Discharge Disposition: HOME SELF-CARE
[2022-04-24] MEDS: SENNOSIDES-DOCUSATE SODIUM 1 EACH TAB PO SCH (09:34)
[2022-04-24 14:34] VITALS: BP 105/70; PULSE 79; TEMP 98.6
== END 2022-04-24 14:10 | disposition home or self-care (01) | DRG 788 ==
LOC: 4FBP 06:27
PROVIDERS: ADMIT Obstetrics & Gynecology; ATTEND Obstetrics & Gynecology
PROC: 4A0HXCZ Measurement of Products of Conception, Cardiac Rate, External Approach (ICD-10-PCS; 2022-04-22)
PROC: 3E0234Z Introduction of Serum, Toxoid and Vaccine into Muscle, Percutaneous Approach (ICD-10-PCS; 2022-04-22)
PROC: 10D00Z1 Extraction of Products of Conception, Low, Open Approach (ICD-10-PCS; principal; 2022-04-22 08:00)
DX: O34.211 Maternal care for low transverse scar from previous cesarean delivery (principal); F17.210 Nicotine dependence, cigarettes, uncomplicated; O99.62 Diseases of the digestive system complicating childbirth; K21.9 Gastro-esophageal reflux disease without esophagitis; O76 Abnormality in fetal heart rate and rhythm complicating labor and delivery; O99.334 Smoking (tobacco) complicating childbirth; O99.824 Streptococcus B carrier state complicating childbirth; Z37.0 Single live birth; Z3A.39 39 weeks gestation of pregnancy; Z91.048 Other nonmedicinal substance allergy status; O26.893 Other specified pregnancy related conditions, third trimester; Z67.41 Type O blood, Rh negative
CPT/HCPCS: 85025; 85461; 86850; 86900; 86901

== ENCOUNTER → 2022-06-05 | Outpatient (CLI) | payer OTHER | LOC: LABWHC1 12:13 | PROVIDERS: ATTEND Obstetrics & Gynecology | DX: N91.2 Amenorrhea, unspecified (principal); F17.200 Nicotine dependence, unspecified, uncomplicated; Z91.02 Food additives allergy status | CPT/HCPCS: 36415; 84702 ==

== ENCOUNTER → 2022-09-29 | Outpatient (CLI) | payer OTHER ==
[2022-09-30 01:28] LABS: Basophils # (A) 0.05 X 10*3/uL (0.00-0.10); Basophils % (A) 0.7 %; Eosinophils # (A) 0.08 X 10*3/uL (0.04-0.35); Eosinophils % (A) 1.2 %; HCT 38.3 % (37.2-46.3); HGB 12.9 g/dL (12.0-15.0); Immature Grans, Automated 0.1 %; Lymphocytes # (A) 2.39 X 10*3/uL (0.90-5.00); Lymphocytes % (A) 34.8 %; MCH 30.3 pg (27.0-32.0); MCHC 33.7 g/dL (32.0-37.0); MCV 89.9 fL (80.0-97.0); Mean Platelet Volume 9.9 fL (9.5-12.2); Monocytes % (A) 7.3 %; NRBC Per 100 WBC 0 /100 WBCS (0.0-0.0); Neutrophils # (A) 3.84 X 10*3/uL (1.80-7.70); Neutrophils % (A) 55.9 %; Platelet Count 257 X 10*3/uL (140-440); RBC 4.26 X 10*6/uL (4.10-5.20); RDW 12.4 % (11.5-14.5); WBC 6.87 X 10*3/uL (4.50-10.00)
== END | disposition home or self-care (01) ==
LOC: LABPAT 16:22
PROVIDERS: ATTEND Obstetrics & Gynecology
DX: Z01.812 Encounter for preprocedural laboratory examination (principal)
CPT/HCPCS: 85025

== ENCOUNTER 2022-10-01 07:44 | Day surgery (SDC) | payer OTHER ==
[2022-09-28 11:40] VITALS: BMI 20.7
--- NOTE | 2022-09-30 19:13 | P.HPOB ---
History of Present Illness H&P Date: 09/30/22 Chief Complaint: DOC III This is a 22 y.o. female, 2, para 2, who presents for colposcopy with loop electrocautery excision procedure due to DOC III on colposcopy. Her pap smear showed atypical cells of undetermined significance, cannot rule out high grade and low grade squamous intraepithelial lesion. OB Hx: . History of 2 sections. 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 Unemployed. Review of Systems Constitutional: Denies chills, Denies fever Eyes: denies blurred vision, denies pain Ears, nose, mouth and throat: Denies headache, Denies sore throat Cardiovascular: Denies chest pain, Denies shortness of breath Respiratory: Denies cough Gastrointestinal: Reports heartburn, Denies abdominal pain, Denies diarrhea, Denies nausea, Denies vomiting Genitourinary: Denies dysuria, Denies hematuria Menstruation: Reports cycle variable Musculoskeletal: Denies myalgias Integumentary: Denies pruritus, Denies rash Neurological: Denies numbness, Denies weakness Psychiatric: Denies anxiety, Denies depression Past Medical History Past Medical History: GERD/Reflux Additional Past Medical History / Comment(s): ABNORMAL PAP History of Any Multi-Drug Resistant Organisms: None Reported Past Surgical History: Section (x2) Past Anesthesia/Blood Transfusion Reactions: No Reported Reaction Past Psychological History: No Psychological Hx Reported Smoking Status: Former smoker, Vaper Past Alcohol Use History: Occasional Past Drug Use History: None Reported - Past Family History Mother Family Medical History: Hypertension Medications and Allergies Home Medications Medication Instructions Recorded Confirmed Type No Known Home Medications 09/28/22 10/01/22 History Allergies Allergy/AdvReac Type Severity Reaction Status Date / Time aspartame Allergy Swelling Verified 10/01/22 08:13 morphine Allergy Rash/Hives Verified 10/01/22 08:13 Exam Osteopathic Statement: *. No significant issues noted on an osteopathic structural exam other than those noted in the History and Physical/Consult. 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 I have discussed the risks, benefits, and alternative therapies for the above- mentioned procedure and for both sedation/anesthesia as well as necessary blood products administration, if indicated, as they pertain to this patient. The patient has indicated her understanding and acceptance of the risks and procedures discussed.
[~2022-10-01 07:44] MED LIST: DEXAMETHASONE SOD PHOSPHATE 4 MG/ML 1 ML VIAL IV ONE; HYDROmorphone 0.5 MG/0.5 ML SYRINGE IVP PRN; LACTATED RINGERS 1,000 ML IV SCH; ONDANSETRON 4 MG/2 ML VIAL IVP ONE; Pre Op ABX Message 1 EACH MISC MISCELLANE ONE
[2022-10-01] MEDS ORDERED: LIDOCAINE 1% (10MG/ML) FOR IV START INTRADERMA ONE (08:23)
[2022-10-01] MEDS ORDERED: MIDAZOLAM 2 MG/2 ML VIAL ONE (09:01)
[2022-10-01] MEDS ORDERED: LIDOCAINE 2% INJ 20 MG/ML (2 ML VIAL) ONE (09:01)
[2022-10-01] MEDS ORDERED: fentaNYL (PF) 50 MCG/ML 2 ML AMP ONE (09:01)
[2022-10-01] MEDS ORDERED: PROPOFOL 10 MG/ML 20 ML VIAL IV ONE (09:01)
[2022-10-01] MEDS ORDERED: KETOROLAC 15 MG/ML 1 ML VIAL ONE (09:01)
[2022-10-01] MEDS ORDERED: LIDOCAINE 1%-EPI 1:100,000 20 ML VIAL SQ ONE ×2 (09:27→09:30)
[2022-10-01] MEDS ORDERED: BUPIVACAINE (PF) 0.5% 30 ML VIAL SQ ONE ×2 (09:27→09:30)
[2022-10-01] MEDS ORDERED: FERRIC SUBSULFATE (MONSELS) JAR TOPICAL ONE (09:28)
[2022-10-01] MEDS ORDERED: IODINE/POTASS IOD (LUGOLS) BOTTLE TOPICAL ONE (09:29)
[2022-10-01] MEDS ORDERED: ACETIC ACID 15 DROPS/ML DROPS MISCELLANE ONE (09:29)
--- NOTE | 2022-10-01 09:35 | P.OP ---
Date of Procedure: 10/01/22 Preoperative Diagnosis: DOC-3 Postoperative Diagnosis: Same Procedure(s) Performed: Colposcopy with loop electrocautery excision procedure Anesthesia: other (Mask general) Surgeon: Shagufta Bui Estimated Blood Loss (ml): 5 Pathology: other (Ectocervix with 12 o'clock position marked with a suture) Condition: stable Disposition: same day Indications for Procedure: This is a 22 y.o. female, 2, para 2, who presents for colposcopy with loop electrocautery excision procedure due to DOC III on colposcopy. Her pap smear showed atypical cells of undetermined significance, cannot rule out high grade and low grade squamous intraepithelial lesion. Operative Findings: Cervix shows acetowhite area at the 4:00 border with no mosaicism seen. The same area is noted to be Lugol white. Transition zone is seen entirely. Description of Procedure: The patient is taken to the operating room she's placed in the dorsal lithotomy positions. She is prepped and draped in the normal sterile fashion. Her bladder is drained with a catheter and then removed. A coated bivalve speculum was placed in the patient's vagina. Cervix is visualized with a colposcope. Cervix is swabbed with 5% acetic acid solution. The above noted findings are made. The cervix was then swabbed with Lugol's solution. The above-noted findings are made. Next the cervix was circumferentially injected with a 50-50 mixture of 1% lidocaine and half percent Marcaine. Approximately 6 mL were used to inject the cervix with a final needle circumferentially. Next the large loop was used with 35 W of cutting power to swipe from left to right encompassing the entire transition zone. Is then removed from the field and marked with a suture at the 12 o'clock position. A ball-tipped cautery is then used to cauterize the bed left behind. Excellent hemostasis is noted. Monsel solution is applied. All instruments are removed from the vagina. All sponge counts are correct. The patient is then taken to recovery room in stable condition.
[2022-10-01 09:53] VITALS: TEMP 97
[2022-10-01] MEDS ORDERED: LACTATED RINGERS 1,000 ML IV ONE (09:56)
[2022-10-01 10:46] VITALS: RESP 20
[2022-10-01 10:59] VITALS: BP 127/85; PULSE 82
[2022-10-01] MEDS ORDERED: MEPERIDINE 50 MG/ML SYRINGE IVP ONE (11:09)
== END 2022-10-01 11:49 | disposition home or self-care (01) ==
LOC: OR 07:44
PROVIDERS: ATTEND Obstetrics & Gynecology
DX: D06.9 Carcinoma in situ of cervix, unspecified (principal); I10 Essential (primary) hypertension; Z87.891 Personal history of nicotine dependence; Z86.59 Personal history of other mental and behavioral disorders
CPT/HCPCS: 81025; 88307; 57522; J2250; J1100; J2175; J2405; J3010; J1885; J2704; J1170; J2001

== ENCOUNTER → 2024-02-02 | Outpatient (CLI) | payer OTHER ==
--- NOTE | 2024-02-02 11:05 | US ---
EXAMINATION TYPE: US pelvic complete DATE OF EXAM: 02/02/2024 COMPARISON: NONE CLINICAL INDICATION: Female, 23 years old with history of R10.2 PELVIC PAIN; PELVIC PAIN X A FEW SHELLY HS TECHNIQUE: Transabdominal (TA). Transabdominal sonographic images of the pelvis were acquired. Date of LMP: 01/30/2024 EXAM MEASUREMENTS: Uterus: 7.4x3.5x6.0 cm Endometrial Stripe: 0.5 cm Right Ovary: 2.8x1.7x2.0 cm Left Ovary: 3.1x1.4x2.5 cm 1. Uterus: Anteverted wnl 2. Endometrium: wnl 3. Right Ovary: wnl 4. Left Ovary: wnl, dominant follicles noted. some trace free fluid noted adjacent to ovary 5. Bilateral Adnexa: Obscured by overlying bowel gas 6. Posterior cul-de-sac: wnl IMPRESSION: Functional ovarian cyst left ovary.
== END | disposition home or self-care (01) ==
LOC: RADUSWWP 10:27
PROVIDERS: ATTEND Obstetrics & Gynecology
DX: N83.202 Unspecified ovarian cyst, left side (principal)
CPT/HCPCS: 76856